=== PATIENT | female | born 1995 | race Caucasian/White ===

== ENCOUNTER 2020-06-08 22:38 | Observation (INO) ==
[2020-06-08] MEDS ORDERED: SODIUM CHLORIDE 0.9% 1000ML 1,000 ML IV ONE (23:12)
[2020-06-08] MEDS ORDERED: ONDANSETRON INJ 2 MG/ML 2 ML VIAL IV STA (23:12)
[2020-06-08] MEDS ORDERED: fentaNYL citrate 100 MCG/2 ML VIAL IV STA (23:13)
[2020-06-08 23:41] LABS: Basophils # (auto) 0.02 K/uL (0-0.2); Basophils % (auto) 0.3 %; Eosinophils % (auto) 1.6 %; Hematocrit (blood only) 34.6 % (37-47); Hemoglobin 11.7 g/dL (12.0-16.0); Lymphocytes # (auto) 2.53 K/uL (1.2-3.4); Lymphocytes % (auto) 41.3 %; Mean Corpuscular Hemoglobin 27.9 pg (25-34); Mean Corpuscular Hgb Conc 33.8 g/dL (32-36); Mean Corpuscular Volume 82.6 fL (80-100); Mean Platelet Volume 10.6 fL (7.4-10.4); Monocytes # (auto) 0.44 K/uL (0.11-0.59); Monocytes % (auto) 7.2 %; Neutrophils # (auto) 3.04 K/uL (1.4-6.5); Neutrophils % (auto) 49.6 %; Platelet Count 215 K/uL (130-400); RDW Coefficient of Variation 14.1 % (11.5-14.5); RDW Standard Deviation 42.9 fL (36.4-46.3); Red Blood Count 4.19 M/uL (4.2-5.4); White Blood Count 6.13 K/uL (4.8-10.8)
[2020-06-08 23:42] LABS: Appearance Urine Clear (Clear); Bacteria Urine Automated Negative (Negative); Bilirubin Urine Negative (Negative); Blood Urine 3+ (Negative); Color Urine Yellow; Epithelial Cell Urine Auto 20-30 /lpf (0-5); Glucose Urine UA Negative (Negative); Ketones Urine Negative (Negative); Leukocyte Esterase Urine Trace (Negative); Nitrite Urine Negative (Negative); Protein Urine Negative (Negative); RBC Urine Automated 0-4 /hpf (0-4); Urobilinogen Urine Negative (Negative); pH Urine 8.5 (4.5-7.5)
[2020-06-08 23:59] LABS: Albumin Level 3.5 gm/dl (3.4-5.0); BUN Creatinine Ratio 13.8 (10-20); Calcium 8.8 mg/dl (8.5-10.1); Creatinine Clr Calc Pharmacy 105.5 ml/min; Est GFR (African American) 131.4; Est GFR (Non-African American) 113.4; Potassium 3.4 mmol/L (3.5-5.1)
[2020-06-09 00:02] LABS: Albumin Globulin Ratio 0.9 (0.9-2); Bilirubin,Total 0.3 mg/dl (0.2-1); Globulin 3.8 gm/dl (2.5-4.0); Pregnancy Test, Serum Positive (Negative); Total Protein 7.3 gm/dl (6.4-8.2)
[2020-06-09] MEDS ORDERED: fentaNYL citrate 100 MCG/2 ML VIAL IV STA (00:50)
[2020-06-09] MEDS ORDERED: CEFAZOLIN 2,000 MG/15 ML IV PUSH IV ONE (01:05)
--- NOTE | 2020-06-09 01:19 | Anesthesiology Consultation ---
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 She does not follow with a recreational vehicle repairer and has not had an echo recently. Reports SOB with most activity. Per records - she did ok with GA for last . She reports no recent drug use. COVID rapid negative History Surgery Operation Date: 06/09/20 01:20 Proposed Procedures p Laparoscopic Ectopic - Julius Beatty MD Height/Weight Height: 5 ft 6 in Weight: 57 kg Allergies Allergy/AdvReac Type Severity Reaction Status Date / Time naproxen Allergy Severe Hives Verified 06/08/20 23:28 pollen extracts Allergy Intermediate ITCHY Verified 06/08/20 23:28 EYES, SNEEZING, CONGESTION Medications Home Medications Medication Instructions Recorded Confirmed Last Taken [id number] 1 tab PO DAILY 06/08/20 06/08/20 06/08/20 [] NPO Date Last Intake of Fluids: 06/08/20 Time Last Intake of Fluids: 19:00 Date Last Intake of Solids: 06/08/20 Time Last Intake of Solids: 19:00 Past Medical History Medical History Asthma Heart murmur Scoliosis Exercise / Class Metabolic Activity III < 4 Walking/Shop/Light housework Negative for chest pain or shortness of breath. Past Surgical History Surgical History History of section Past Anesthesia History No Hx of Anesthesia Complications and Other (sister is "allergic" to anesthesia - gives her hives) History of PONV No Hx of PONV and Hx of Motion Sickness Social History Smoking Status: Current every day smoker tobacco type: cigarettes Smoking cigarettes per day: 5 Hx Alcohol Use: No Hx Substance Use: No (pt denies use in the last year. Records report meth use prior to ) substance use type: methamphetamine Last Used Substance: Unknown Last Used Substance Other:: 02/2018 Review of Systems Patient denies active symptoms of GERD. denies n/v Physical Exam Vital Signs Last Vital Signs Temp 36.7 C 06/08/20 22:45 Pulse 63 06/09/20 01:42 Resp 18 06/09/20 01:42 BP 98/42 L 06/09/20 01:42 Pulse Ox 98 06/09/20 01:42 Constitutional not obese ENMT Mouth: no TMJ abnormality and oral opening not small Thyromental Distance: > or= 3.5 Finger Breadths Mallampati Class: II Mouth / Teeth: 1. chipped teeth Neck normal visual inspection; neck extension not limited Respiratory normal respiratory effort Auscultation: lungs clear to auscultation bilaterally Cardiovascular Rate/Rhythm: regular rate and regular rhythm Heart Sounds: no murmur Neurologic moves all extremities Psychiatric Orientation: alert and oriented x 3 Testing Laboratory Results 06/08/20 23:25 06/08/20 23:25 HCG, Quant 8037 mIU/ml 06/08/20 23:25 Urine Color Yellow 06/08/20 23:10 Urine Appearance Clear (Clear) 06/08/20 23:10 Urine pH 8.5 (4.5-7.5) H 06/08/20 23:10 Ur Specific [place] 1.010 (1.000-1.030) 06/08/20 23:10 Urine Protein Negative (Negative) 06/08/20 23:10 Urine Glucose (UA) Negative (Negative) 06/08/20 23:10 Urine Ketones Negative (Negative) 06/08/20 23:10 Urine Nitrite Negative (Negative) 06/08/20 23:10 Ur Leukocyte Esterase Trace (Negative) H 06/08/20 23:10 Urine WBC (Auto) 1-5 /hpf (0-5) 06/08/20 23:10 Urine RBC (Auto) 0-4 /hpf (0-4) 06/08/20 23:10 U Hyaline Cast (Auto) 1-5 /lpf (0-5) 06/08/20 23:10 U Epithel Cells (Auto) 20-30 /lpf (0-5) H 06/08/20 23:10 Urine Bacteria (Auto) Negative (Negative) 06/08/20 23:10 06/08/20 23:25 HCG, Quant 8037
[2020-06-09] MEDS ORDERED: CEFAZOLIN 2000MG 2,000 MG/15 ML SYR IV ONE (01:30)
[2020-06-09] MEDS ORDERED: ONDANSETRON INJ 2 MG/ML 2 ML VIAL ONE ×2 (01:44→03:33)
[2020-06-09] MEDS ORDERED: MIDAZOLAM HCL 1 MG/ML 2ML VIAL ONE (01:44)
[2020-06-09] MEDS ORDERED: DEXAMETHASONE SOD INJ 4 MG/ML VIAL ONE (01:44)
[2020-06-09] MEDS ORDERED: PROPOFOL IV EMULSION 10 MG/ML 20 ML VIAL IV ONE (01:44)
[2020-06-09] MEDS ORDERED: fentaNYL citrate 100 MCG/2 ML VIAL ONE ×2 (01:45→03:52)
[2020-06-09] MEDS ORDERED: LIDOCAINE HCL 2% 2 ML VIAL/AMP(20MG/ML) INFIL ONE (01:45)
[2020-06-09] MEDS ORDERED: SUCCINYLCHOLINE CHLORIDE 20 MG/ML 10 ML VIAL IV ONE (01:45)
[2020-06-09] MEDS ORDERED: ATROPINE SULFATE 0.1 MG/ML 10ML SYR IV PRN (01:53)
[2020-06-09] MEDS ORDERED: ONDANSETRON INJ 2 MG/ML 2 ML VIAL IV PRN ×2 (01:53→04:24)
[2020-06-09] MEDS ORDERED: ePHEDrine sulfate 50 MG/ML AMP IV PRN (01:53)
[2020-06-09] MEDS ORDERED: fentaNYL citrate 100 MCG/2 ML VIAL IV PRN (01:53)
[2020-06-09] MEDS ORDERED: PROMETHAZINE HCL 12.5 MG in SODIUM CHLORIDE 0.9% 50 ML IV PRN (01:53)
[2020-06-09] MEDS ORDERED: BUPIVACAINE/EPINEPHRINE 0.25% 1:200,000 30 ML VIAL ONE (02:26)
--- NOTE | 2020-06-09 02:26 | History and Physical Report ---
DATE OF ADMISSION: 06/09/2020 The patient is seen in the ER at [facility]. HISTORY OF PRESENT ILLNESS: This is a 24-year-old G2, P1 who was seen in the Emergency Room on 06/08/[address] Mcgee. Diagnosis at that visit was ectopic . She was asymptomatic and received methotrexate. Today she presented again to the ER and said she now has increased abdominal pain in the pelvic region with some bleeding. On evaluation by the ER physician, the patient's vitals are stable. Her hemoglobin has not changed; however, on ultrasound which has not officially been read has been discussed with the tech who reports seeing increased pelvic free fluid. The patient has increased abdominal pain. Otherwise, unremarkable. 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 SOCIAL HISTORY: The patient denies drug and alcohol use, but smokes 1-1/2 pack a day. ALLERGIES: THE PATIENT IS ALLERGIC TO NAPROSYN. SHE REPORTS HIVES WITH NAPROSYN. MEDICATIONS: The patient is on vitamins. FAMILY HISTORY: Noncontributory. PHYSICAL EXAMINATION: GENERAL: Well-developed, well-nourished white female in moderate discomfort. VITAL SIGNS: Unremarkable. HEART: S1, S2, regular rhythm and rate. LUNGS: Clear to auscultation bilaterally. ABDOMEN: No guarding, no rebound, but the patient has increased tenderness in the lower abdominal region. PELVIC: The patient has increased vaginal bleeding. There is no passing of tissue in the vaginal os, there is some discomfort in the right adnexa. LABS: Today, hemoglobin is 11.7, hematocrit is 37.4, WBC 6.3, platelets 215. Ultrasound as stated above, official read of the ultrasound is still pending. ASSESSMENT AND PLAN: A 24-year-old G2, P1 with known ectopic . The patient received methotrexate yesterday. Today, her symptoms are worse in terms of abdominal pain. Vital signs; however, are stable. The repeated ultrasound today shows fluid in the pelvis. I have discussed expected management and surgery with the patient. The patient has agreed to undergo operative laparoscopy to remove ectopic. We have discussed possible oophorectomy, salpingectomy of the affected tube. Consent is signed and patient will be sent to surgery.
[2020-06-09] MEDS ORDERED: ROCURONIUM BROMIDE 10 MG/ML 5 ML VIAL IV ONE (03:33)
[2020-06-09] MEDS ORDERED: NEOSTIGMINE METHYLSULFATE 5 MG/5 ML SYR ONE (03:47)
[2020-06-09] MEDS ORDERED: GLYCOPYRROLATE 0.2 MG/ML VIAL ONE (03:47)
[2020-06-09] MEDS ORDERED: PROMETHAZINE HCL 25 MG in SODIUM CHLORIDE 0.9% 50 ML IV PRN (04:24)
[2020-06-09] MEDS ORDERED: OXYCODONE/ACETAMINOPHEN 5mg/325mg TAB PO PRN (04:24)
[2020-06-09] MEDS ORDERED: IBUPROFEN 600 MG TAB PO PRN (04:24)
--- NOTE | 2020-06-09 04:28 | Post Operative Brief Note ---
Immediate Post Op Note v1 Date of Surgery June 09, 2020 Pre & Post Diagnosis Operation Date: 06/09/20 01:20 Pre-Op Diagnosis: Ectopic , abdominal pain Post-Op Diagnosis: Right Ruptured Ectopic , abdominal pain I identified the patient and participated in the time-out.: Yes Procedure Operation Date: 06/09/20 01:20 Actual Procedures p Operative laparoscopy, Evacuation hemoperitoneum, Right salpingectomy(Right) - Julius Beatty MD Surgeon Julius Beatty MD Field Map Editor none Estimated Blood Loss 200 Findings Consistent with Post-Op Diagnosis Drains Moore Catheter
[2020-06-09] MEDS ORDERED: LACTATED RINGER'S 1,000 ML IV SCH (04:30)
[2020-06-09] MEDS ORDERED: MEPERIDINE HCL 25 MG/ML CARP/VIAL IV PRN (04:34)
[2020-06-09] MEDS ORDERED: HYDROmorphone INJ 2 MG/ML SYR/VIAL IV PRN (04:34)
[2020-06-09] MEDS ORDERED: MEPERIDINE HCL 25 MG/ML CARP/VIAL ONE (04:35)
[2020-06-09] MEDS ORDERED: HYDROmorphone INJ 1 MG/ML SYRINGE ONE ×2 (04:35→04:48)
--- NOTE | 2020-06-09 04:52 | Anesthesiology Progress Note ---
Date of Service June 09, 2020 Anesthesia Post Procedure Vital Signs Vital Signs: Temp Pulse Pulse Resp BP BP Pulse Ox 06/09/20 01:42 63 18 98/42 L 98 06/09/20 00:15 67 16 102/44 L 100 06/08/20 23:23 74 16 107/62 100 06/08/20 23:20 100 06/08/20 22:45 36.7 C 86 22 193/63 H 100 Pain Intensity Abdomen: Pain Intensity: 3 Transfer of Care Handoff Completed per policy Notes Mental Status: alert / awake / arousable and participated in evaluation Patient Amnestic to Procedure: Yes Nausea / Vomiting: adequately controlled Pain: improving with treatment Airway Patency, RR, SpO2: stable & adequate BP & HR: stable & adequate Hydration State: stable & adequate Anesthetic Complications: no major complications apparent and Pt Satisfied with anesthetic care
--- NOTE | 2020-06-09 05:30 | Emergency Department Note ---
History of Present Illness General Chief complaint: Abdominal Pain Stated complaint: ABD PAIN Source: patient and family (s/o) Mode of arrival: ambulatory Limitations: no limitations History of Present Illness Provider complaint: lower abd pain, ectopic Maximum Pain Intensity: 2 This pt is a 24 yo female who presents to the ED with c/o lower to R abd pain that began with a sharp pain at ~2130 tonight. PT was seen last pm and dx with ectopic , given methotrexate in the ED. SHe admits to a moderate amount of a bloody d/c this evening, more than last night. Pt denies fever, vomiting. Home Medications Home Medications Medication Instructions Recorded Confirmed Type 1 tab PO DAILY 06/08/20 06/08/20 History ibuprofen 600 mg PO Q4H #20 tab 06/09/20 Rx oxycodone-acetaminophen [Percocet] 1 - 2 tab PO Q4H #10 tab 06/09/20 Rx Allergies Allergy/AdvReac Type Severity Reaction Status Date / Time naproxen Allergy Severe Hives Verified 06/08/20 23:28 pollen extracts Allergy Intermediate ITCHY Verified 06/08/20 23:28 EYES, SNEEZING, CONGESTION Past Med/Surg History Medical History Asthma Heart murmur Scoliosis Surgical History History of section Social History Smoking Status: Current every day smoker Tobacco Type: Cigarettes Cigarettes Per Day: 1/2 pack; Second Hand Exposure: Yes; Do You Dip or Chew Tobacco: No; Tobacco Cessation Education Requested by Patient: Yes Hx Alcohol Use: Yes Alcohol type: beer and wine Hx Substance Use: Yes Last Used Substance: Unknown Last Used Substance Other:: before May 09, 2020 Preferred Language: Mohawk Communication Ability: Effective Communications Intern Required: No Beliefs That Will Affect Care: None marital status: Single Current Living Situation: Significant Other Current Living Situation Comment: fiance and friend Other Information That Helps Us Care for You: No Feels Safe at Home: Yes Safety Concerns: Feels Safe At This Time Assistive Devices: None Review of Systems See HPI for pertinent positives & negatives. and A total of 10 systems reviewed and were otherwise negative Physical Exam Vital Signs Vital Signs - 24 hr 10/02/20 22:45 06/08/20 23:20 06/08/20 23:23 Temperature 36.7 C Temperature Source Oral Pulse Rate 86 Pulse Rate [Apical] 74 Pulse Rhythm [Apical] Respiratory Rate 22 16 Respiratory Effort / Characteristics Non-Labored Spontaneous Respiratory Depth Normal Normal Respiratory Pattern Regular Blood Pressure 193/63 H Blood Pressure [Left Arm] 107/62 Blood Pressure Mean 106 Blood Pressure Mean [Left Arm] 77 Blood Pressure Position [Left Arm] Pulse Oximetry 100 100 100 Oxygen Delivery Method Room Air Room Air Room Air Oxygen Flow Rate Sepsis Recent Fever Within 48 Hours No Sepsis New/Unexplained Change in Mental Status No Sepsis Action Taken by Nursing No Action Required 06/09/20 00:15 06/09/20 01:42 06/09/20 04:29 Temperature 36.0 C L Temperature Source Temporal Artery Scan Pulse Rate Pulse Rate [Apical] 67 63 93 H Pulse Rhythm [Apical] Regular Respiratory Rate 16 18 20 Respiratory Effort / Characteristics Non-Labored Spontaneous Respiratory Depth Normal Normal Normal Respiratory Pattern Regular Blood Pressure Blood Pressure [Left Arm] 102/44 L 98/42 L 102/79 Blood Pressure Mean Blood Pressure Mean [Left Arm] 63 60 86 Blood Pressure Position [Left Arm] Semi-fowlers Pulse Oximetry 100 98 100 Oxygen Delivery Method Room Air Room Air Oxymask Oxygen Flow Rate 10 Sepsis Recent Fever Within 48 Hours Sepsis New/Unexplained Change in Mental Status Sepsis Action Taken by Nursing 06/09/20 04:35 06/09/20 04:45 06/09/20 04:55 Temperature Temperature Source Pulse Rate Pulse Rate [Apical] 85 73 57 L Pulse Rhythm [Apical] Regular Regular Regular Respiratory Rate 20 15 12 Respiratory Effort / Characteristics Non-Labored Spontaneous Non-Labored Spontaneous Non-Labored Spontaneous Respiratory Depth Normal Normal Normal Respiratory Pattern Regular Regular Regular Blood Pressure Blood Pressure [Left Arm] 112/56 L 114/64 108/50 L Blood Pressure Mean Blood Pressure Mean [Left Arm] 74 80 69 Blood Pressure Position [Left Arm] Semi-fowlers Semi-fowlers Semi-fowlers Pulse Oximetry 100 100 100 Oxygen Delivery Method Oxymask Oxymask Nasal Cannula Oxygen Flow Rate 10 4 2 Sepsis Recent Fever Within 48 Hours Sepsis New/Unexplained Change in Mental Status Sepsis Action Taken by Nursing 06/09/20 05:05 Temperature 36.3 C L Temperature Source Temporal Artery Scan Pulse Rate Pulse Rate [Apical] 55 L Pulse Rhythm [Apical] Regular Respiratory Rate 16 Respiratory Effort / Characteristics Non-Labored Spontaneous Respiratory Depth Normal Respiratory Pattern Regular Blood Pressure Blood Pressure [Left Arm] 100/50 L Blood Pressure Mean Blood Pressure Mean [Left Arm] 66 Blood Pressure Position [Left Arm] Semi-fowlers Pulse Oximetry 100 Oxygen Delivery Method Nasal Cannula Oxygen Flow Rate 2 Sepsis Recent Fever Within 48 Hours Sepsis New/Unexplained Change in Mental Status Sepsis Action Taken by Nursing Vital signs reviewed. General: Well-appearing 24 yo female, in no significant distress. HEENT: No scleral icterus, PERRLA, neck supple. Atraumatic. Cardiovascular: Regular rate and rhythm, no extra sounds. Pulmonary: Clear to auscultation bilaterally, normal work of breathing. Abdomen: Soft, tender to palp suprapubic->RLQ, nondistended, positive bowel sounds. Musculoskeletal: Atraumatic, no peripheral edema. Neurologic: Patient awake alert and oriented x 3. Skin: Warm, dry, no rash Course Administered Medications Discontinued Medications Cefazolin Sodium (Cefazolin 2,000 Mg/15 Ml Iv Push) Confirm Administered Dose 2,000 mg IV .STK-MED ONE Stop: 06/09/20 01:06 Last Admin: 06/09/20 01:11 Dose: 2,000 mg Documented by: [id number] Fentanyl Citrate (Fentanyl Citrate 100 Mcg/2 Ml Vial) 50 mcg IV NOW STA Stop: 06/08/20 23:14 Last Admin: 06/08/20 23:22 Dose: 50 mcg Documented by: [id number] Fentanyl Citrate (Fentanyl Citrate 100 Mcg/2 Ml Vial) 50 mcg IV NOW STA Stop: 06/09/20 00:51 Last Admin: 06/09/20 01:00 Dose: 50 mcg Documented by: [id number] Hydromorphone HCl (Hydromorphone Inj 1 Mg/Ml Syringe) Confirm Administered Dose 1 mg .ROUTE .STK-MED ONE Stop: 06/09/20 04:36 Last Increment: 06/09/20 04:46 Dose: 0.5 mg Documented by: [id number] Increment: 06/09/20 04:41 Dose: 0.5 mg Documented by: [id number] Hydromorphone HCl (Hydromorphone Inj 1 Mg/Ml Syringe) Confirm Administered Dose 1 mg .ROUTE .STK-MED ONE Stop: 06/09/20 04:49 Last Increment: 06/09/20 04:56 Dose: 0.5 mg Documented by: [id number] Increment: 06/09/20 04:51 Dose: 0.5 mg Documented by: [id number] Sodium Chloride (Nss 1000ml) 1,000 mls @ 999 mls/hr IV .Q1H1M ONE Stop: 06/09/20 00:12 Last Infusion: 06/09/20 00:23 Dose: 0 mls/hr Documented by: [id number] Admin: 06/08/20 23:22 Dose: 999 mls/hr Documented by: [id number] Cefazolin Sodium (Ancef 2000mg) 2,000 mg in 15 mls @ 3.75 mls/min IV ONE ONE; Protocol Stop: 06/09/20 01:33 Last Admin: 06/09/20 01:42 Dose: Not Given Documented by: [id number] Meperidine HCl (Meperidine Hcl 25 Mg/Ml Carp/Vial) 12.5 mg IV Q5M PRN PRN Reason: PACU Use Only-Pain/Shivering Stop: 06/09/20 12:35 Last Admin: 06/09/20 04:36 Dose: 12.5 mg Documented by: [id number] Ondansetron HCl (Ondansetron Inj 2 Mg/Ml 2 Ml Vial) 4 mg IV NOW STA Stop: 06/08/20 23:13 Last Admin: 06/08/20 23:22 Dose: 4 mg Documented by: [id number] Ondansetron HCl (Ondansetron Inj 2 Mg/Ml 2 Ml Vial) 4 mg IV Q4H PRN PRN Reason: Nausea And Vomiting Stop: 07/09/20 04:23 Last Admin: 06/09/20 09:02 Dose: 4 mg Documented by: [id number] Medical Decision Making Differential Diagnosis Differential diagnosis: Etiologies such as ectopic , ruptured tube, dysfunction uterine bleeding, pelvic mass, fibroid, coagulopathy, anemia, trauma, infection, as well as others were entertained. Medical Records Attestation: I reviewed the patient's medical records. Home Medications Current Medication List: was personally reviewed by me Laboratory Data Attestation: I reviewed the patient's lab results. Result diagrams: 06/08/20 23:25 06/08/20 23:25 Lab Results 06/08/20 06/08/20 06/08/20 Range/Units 23:10 23:25 23:25 WBC 6.13 (4.8-10.8) K/uL RBC 4.19 L (4.2-5.4) M/uL Hgb 11.7 L (12.0-16.0) g/dL Hct 34.6 L (37-47) % MCV 82.6 (80-100) fL MCH 27.9 (25-34) pg MCHC 33.8 (32-36) g/dL RDW Std Deviation 42.9 (36.4-46.3) fL RDW Coeff of Rossi 14.1 (11.5-14.5) % Plt Count 215 (130-400) K/uL MPV 10.6 H (7.4-10.4) fL Immature Gran % (Auto) 0.0 % Neut % (Auto) 49.6 % Lymph % (Auto) 41.3 % [place] % (Auto) 7.2 % Eos % (Auto) 1.6 % Baso % (Auto) 0.3 % Neut # (Auto) 3.04 (1.4-6.5) K/uL Lymph # (Auto) 2.53 (1.2-3.4) K/uL [place] # (Auto) 0.44 (0.11-0.59) K/uL Eos # (Auto) 0.10 (0-0.5) K/uL Baso # (Auto) 0.02 (0-0.2) K/uL Immature Gran # (Auto) 0.00 (0.00-0.02) K/uL Sodium 141 (136-145) mmol/L Potassium 3.4 L (3.5-5.1) mmol/L Chloride 110 H (98-107) mmol/L Carbon Dioxide 24 (21-32) mmol/L Anion Gap 7.0 (3-11) BUN 10 (7-18) mg/dl Creatinine 0.74 (0.6-1.2) mg/dl Est Cr Clr Drug Dosing 105.5 ml/min Est GFR ( Amer) 131.4 Est GFR (Non-Af Amer) 113.4 BUN/Creatinine Ratio 13.8 (10-20) Glucose 92 (70-99) mg/dl Calcium 8.8 (8.5-10.1) mg/dl Total Bilirubin 0.3 (0.2-1) mg/dl AST 13 L (15-37) U/L ALT 22 (12-78) U/L Alkaline Phosphatase 47 (45-117) U/L Total Protein 7.3 (6.4-8.2) gm/dl Albumin 3.5 (3.4-5.0) gm/dl Globulin 3.8 (2.5-4.0) gm/dl Albumin/Globulin Ratio 0.9 (0.9-2) Lipase 105 (73-393) U/L HCG, Qual (Negative) HCG, Quant mIU/ml Urine Color Yellow Urine Appearance Clear (Clear) Urine pH 8.5 H (4.5-7.5) Ur Specific [place] 1.010 (1.000-1.030) Urine Protein Negative (Negative) Urine Glucose (UA) Negative (Negative) Urine Ketones Negative (Negative) Urine Blood 3+ H (Negative) Urine Nitrite Negative (Negative) Urine Bilirubin Negative (Negative) Urine Urobilinogen Negative (Negative) Ur Leukocyte Esterase Trace H (Negative) Urine WBC (Auto) 1-5 (0-5) /hpf Urine RBC (Auto) 0-4 (0-4) /hpf U Hyaline Cast (Auto) 1-5 (0-5) /lpf U Epithel Cells (Auto) 20-30 H (0-5) /lpf Urine Bacteria (Auto) Negative (Negative) COVID-19 Eval Order SARS-CoV-2, RNA, NAAT (NEGATIVE) Blood Type Antibody Screen 06/08/20 06/08/20 06/09/20 Range/Units 23:25 23:25 01:11 WBC (4.8-10.8) K/uL RBC (4.2-5.4) M/uL Hgb (12.0-16.0) g/dL Hct (37-47) % MCV (80-100) fL MCH (25-34) pg MCHC (32-36) g/dL RDW Std Deviation (36.4-46.3) fL RDW Coeff of Rossi (11.5-14.5) % Plt Count (130-400) K/uL MPV (7.4-10.4) fL Immature Gran % (Auto) % Neut % (Auto) % Lymph % (Auto) % [place] % (Auto) % Eos % (Auto) % Baso % (Auto) % Neut # (Auto) (1.4-6.5) K/uL Lymph # (Auto) (1.2-3.4) K/uL [place] # (Auto) (0.11-0.59) K/uL Eos # (Auto) (0-0.5) K/uL Baso # (Auto) (0-0.2) K/uL Immature Gran # (Auto) (0.00-0.02) K/uL Sodium (136-145) mmol/L Potassium (3.5-5.1) mmol/L Chloride (98-107) mmol/L Carbon Dioxide (21-32) mmol/L Anion Gap (3-11) BUN (7-18) mg/dl Creatinine (0.6-1.2) mg/dl Est Cr Clr Drug Dosing ml/min Est GFR ( Amer) Est GFR (Non-Af Amer) BUN/Creatinine Ratio (10-20) Glucose (70-99) mg/dl Calcium (8.5-10.1) mg/dl Total Bilirubin (0.2-1) mg/dl AST (15-37) U/L ALT (12-78) U/L Alkaline Phosphatase (45-117) U/L Total Protein (6.4-8.2) gm/dl Albumin (3.4-5.0) gm/dl Globulin (2.5-4.0) gm/dl Albumin/Globulin Ratio (0.9-2) Lipase (73-393) U/L HCG, Qual Positive (Negative) HCG, Quant 8037 mIU/ml Urine Color Urine Appearance (Clear) Urine pH (4.5-7.5) Ur Specific [place] (1.000-1.030) Urine Protein (Negative) Urine Glucose (UA) (Negative) Urine Ketones (Negative) Urine Blood (Negative) Urine Nitrite (Negative) Urine Bilirubin (Negative) Urine Urobilinogen (Negative) Ur Leukocyte Esterase (Negative) Urine WBC (Auto) (0-5) /hpf Urine RBC (Auto) (0-4) /hpf U Hyaline Cast (Auto) (0-5) /lpf U Epithel Cells (Auto) (0-5) /lpf Urine Bacteria (Auto) (Negative) COVID[facility]19 [email or web address] SARS-CoV-2, RNA, NAAT (NEGATIVE) Blood Type Antibody Screen 06/09/20 06/09/20 Range/Units 01:11 01:26 WBC (4.8-10.8) K/uL RBC (4.2-5.4) M/uL Hgb (12.0-16.0) g/dL Hct (37-47) % MCV (80-100) fL MCH (25-34) pg MCHC (32-36) g/dL RDW Std Deviation (36.4-46.3) fL RDW Coeff of Rossi (11.5-14.5) % Plt Count (130-400) K/uL MPV (7.4-10.4) fL Immature Gran % (Auto) % Neut % (Auto) % Lymph % (Auto) % [place] % (Auto) % Eos % (Auto) % Baso % (Auto) % Neut # (Auto) (1.4-6.5) K/uL Lymph # (Auto) (1.2-3.4) K/uL [place] # (Auto) (0.11-0.59) K/uL Eos # (Auto) (0-0.5) K/uL Baso # (Auto) (0-0.2) K/uL Immature Gran # (Auto) (0.00-0.02) K/uL Sodium (136-145) mmol/L Potassium (3.5-5.1) mmol/L Chloride (98-107) mmol/L Carbon Dioxide (21-32) mmol/L Anion Gap (3-11) BUN (7-18) mg/dl Creatinine (0.6-1.2) mg/dl Est Cr Clr Drug Dosing ml/min Est GFR ( Amer) Est GFR (Non-Af Amer) BUN/Creatinine Ratio (10-20) Glucose (70-99) mg/dl Calcium (8.5-10.1) mg/dl Total Bilirubin (0.2-1) mg/dl AST (15-37) U/L ALT (12-78) U/L Alkaline Phosphatase (45-117) U/L Total Protein (6.4-8.2) gm/dl Albumin (3.4-5.0) gm/dl Globulin (2.5-4.0) gm/dl Albumin/Globulin Ratio (0.9-2) Lipase (73-393) U/L HCG, Qual (Negative) HCG, Quant mIU/ml Urine Color Urine Appearance (Clear) Urine pH (4.5-7.5) Ur Specific [place] (1.000-1.030) Urine Protein (Negative) Urine Glucose (UA) (Negative) Urine Ketones (Negative) Urine Blood (Negative) Urine Nitrite (Negative) Urine Bilirubin (Negative) Urine Urobilinogen (Negative) Ur Leukocyte Esterase (Negative) Urine WBC (Auto) (0-5) /hpf Urine RBC (Auto) (0-4) /hpf U Hyaline Cast (Auto) (0-5) /lpf U Epithel Cells (Auto) (0-5) /lpf Urine Bacteria (Auto) (Negative) COVID-19 Eval Order SARS-CoV-2, RNA, NAAT NEGATIVE (NEGATIVE) Blood Type A Positive Antibody Screen NEGATIVE Imaging Data Attestation: I personally reviewed and interpreted this imaging study as follows: Blood Pressure Blood Pressure Findings: Low blood pressure Blood Pressure Disposition: further management by hospitalist (OBGYN) MDM Narrative This pt was evaluated and appeared to be in no distress. IV access was obtained and lab work was drawn. An order was placed for cardiac monitoring and the pt is noted to be slightly hypotensive. She was hydrated with NSS, given IV fentanyl and zofran. US was perfomed and is significant for free fluid concerning for ruptured/bleeding tube. OBGYN Dr. Beatty was consulted and eval uated the pt in the ED. He will take the pt to the OR for definite mamagement. Pt is aware of the plan and agrees. Impression & Plan Hemoperitoneum due to rupture of right tubal ectopic Discharge Plan Visit Data Chief Complaint: Abdominal Pain Stated Complaint: ABD PAIN ED Provider: Brianna Clay Discharge Problem: Hemoperitoneum due to rupture of right tubal ectopic Patient Disposition: Still a Patient Discharge Instructions Interventions: ED Discharge Assessment Last Done: 06/09/20 01:43
--- NOTE | 2020-06-09 09:05 | Ultrasound Report ---
US OB <= 14 weeks fetus CLINICAL HISTORY: ectopic s/p methotrexate, now pain COMPARISON STUDY: No previous studies for comparison. FINDINGS: The uterus measured 8.6 x 4.0 x 5.9 cm. Endometrial stripe measured 2 mm. No intrauterine gestational sac was visualized. The left ovary measured 40 x 16 x 16 mm. The right ovary measured 37 x 16 x 42 mm. There is a vascular echogenic area within the right adnexa measuring 47 x 30 x 27 mm. This could represent an ectopic . Note is made of complex free fl uid. IMPRESSION: 1. No intrauterine identified 2. Complex vascular right adnexal mass measuring 47 x 30 x 27 mm, potentially representing an ectopic . Correlation with quantitative beta-hCGs is recommended. 3. Free fluid which is increased when compared the study performed earlier in the day ACT 112: Negative or not required by law. Electronically signed by: Ricardo Reed M.D. 06/09/2020 9:04 AM
--- NOTE | 2020-06-09 10:03 | Operative Report (OR) ---
DATE OF OPERATION: 06/09/2020 INDICATION FOR PROCEDURE: This is a 24-year-old with right ectopic who had failed medical therapy. The patient was taken to the operating room for surgery. PREOPERATIVE DIAGNOSIS: Ectopic , failed medical therapy. POSTOPERATIVE DIAGNOSES: 1. Ectopic , failed medical therapy. 2. Hemoperitoneum. PROCEDURE: 1. Operative laparoscopy. 2. Right salpingectomy. 3. Evacuation of hemoperitoneum. 4. Lysis of adhesions. SURGEON: Julius Beatty MD. API PRODUCT MANAGER: None. ANESTHESIA: General. ESTIMATED BLOOD LOSS: 200 mL IV FLUIDS: 1100 mL. URINE OUTPUT: 200 mL clear urine at end of procedure. FINDINGS: Normal female escutcheon. No lesions of vagina or vulva. Uterus is about 8 weeks' size. There was minimal blood in the vaginal vault. Abdominal findings; the patient had been diffusion of the omentum to the anterior abdominal wall. The patient had had prior section. The left fallopian tube and ovary appeared grossly normal. There was adhesion of the sigmoid on the left side to the left adnexa. There was above 200 mL of blood in the pelvis. The right fallopian tube appeared dilated with the ectopic . The ovary on that side; however, appeared grossly normal. The rest of the pelvic abdominal exam was otherwise normal. PATHOLOGY SPECIMEN: Right fallopian tube with ectopic . COMPLICATIONS: None. DRAINS: None. DISPOSITION: Stable to recovery room. DESCRIPTION OF PROCEDURE: The patient was taken to the operating room where she was prepped and draped in normal sterile fashion. Timeout was called. Moore catheter was inserted in the bladder. A weighted speculum was placed in the vagina. Hall retractor was used to retract the anterior part of the vagina. Single tooth tenaculum was used to grab the cervix. A HUMI uterine manipulator was placed into the uterus to help manipulate the uterus during laparoscopy. Attention was then turned to the abdominal part of the procedure where an infraumbilical incision was made with a scalpel and carried down to the fascia. Fascia was grabbed with 2 Kochers. Veress needle was introduced into the abdomen at a 45-degree angle while tenting up the abdomen. Intraabdominal placement was confirmed with a water-filled syringe. The abdomen was insufflated with 3.5 liters of CO2 gas. The Veress needle was removed. A nonbladed trocar was introduced into the abdomen at a 45-degree angle while tenting up the abdomen under direct visualization. Once inside the abdomen, laparoscope was repositioned. Three more accessory ports were placed and 11 mm port on the left lower quadrant. The 2 additional ports, both 5 mm ports. The patient was placed in Trendelenburg position. The findings of the abdomen is as dictated above. There was some adhesion of the omentum to the abdominal wall, which was removed using the LigaSure through the accessory port. Hemoperitoneum in the abdomen was evacuated using suction. At this point, the ectopic was identified as being in the right fallopian tube. This was transected using a 5 mm LigaSure. There was good hemostasis. The ovary on that side was left intact. There was no bleeding on the site. Copious amount of irrigation was now used to irrigate the abdomen. Once again, hemostasis was confirmed. The LigaSure and irrigation was removed. The Endobag was passed through the 10 mm port. The specimen was removed through the port. A 10 mm port was closed under direct visualization using a 0 Vicryl stitch. More irrigation was used to irrigate the abdomen and pelvis once good hemostasis confirmed. At this point, all trocars were removed from the abdomen. All trocar sites were closed, the 10 mm port site closed in 2 layers, first by closing the fascia and then the skin. A 5 mm sites were closed in single layer of the skin. Closure of the skin was performed with 4-0 Monocryl. Attention was paid to the vaginal part of the procedure where the uterine manipulator and a single tooth tenaculum was removed as well as a Moore catheter. All instruments were removed from the abdomen and the vagina and accounted for x2 including sponges, needles and retractors. The patient is sent to recovery in stable condition. I attest to the content of the Intraoperative Record and any orders documented therein. Any exception s are noted below.
== END 2020-06-09 09:55 | disposition home or self-care (01) ==
LOC: ED 22:38 → OR 06-09 01:43 → 4N 06-09 01:43